=== PATIENT | male | born 1975 | race African-American/Black ===

== ENCOUNTER 2017-05-30 05:45 | Day surgery (SDC) | payer OTHER ==
[2017-05-30] VITALS (13 sets, daily range): BP systolic 116–191; BP diastolic 63–101
[~2017-05-30] VITALS: Ht 191.8 cm; Wt 89.8 kg
[2017-05-30] MEDS ORDERED: ceFAZolin 1gm/50ml Premix 50 ML IV ONE (06:00)
[2017-05-30] MEDS ORDERED: oxyCONTIN 20mg tab ORAL ONE (06:00)
[2017-05-30] MEDS ORDERED: Morphine Sulfate PF 10 ML ONE (06:22)
[2017-05-30] MEDS ORDERED: Kenalog-40 1ml Vial ONE (06:22)
[2017-05-30] MEDS ORDERED: LOTENSIN40 MG ORAL (06:22)
[2017-05-30] MEDS ORDERED: HYDRALAZINE HCL50 MG ORAL (06:22)
[2017-05-30] MEDS ORDERED: Bupivacaine w/Epi 0.5% 30ml Vial INJ ONE (06:23)
[2017-05-30] MEDS ORDERED: Bupivacaine 0.25% Inj 30ml INJ ONE (06:23)
[2017-05-30] MEDS ORDERED: Lidocaine 1% 10mg/ml/Epi 0.005mg/ml 30ml vial INJ ONE (06:23)
[2017-05-30] MEDS ORDERED: Ketorolac 30mg Inj ONE (06:23)
[2017-05-30] MEDS ORDERED: fentaNYL 100 mcg/2 mL IV ONE (07:00)
[2017-05-30] MEDS ORDERED: Duramorph PF 10mg/10ml amp EPIDUR ONE (07:00)
[2017-05-30] MEDS ORDERED: Midazolam 2mg/2ml Inj ONE (07:00)
[2017-05-30] MEDS ORDERED: NS Irrig 4000ml IRRIG ONE ×2 (07:00)
[2017-05-30] MEDS ORDERED: LR 1000ml ONE (07:00)
[2017-05-30] MEDS ORDERED: Sterile Water For Irrig 2000ml IRRIG ONE (07:00)
[2017-05-30] MEDS ORDERED: Propofol 200mg/20ml IV ONE (07:00)
--- NOTE | 2017-05-30 07:07 | Operative Note - PDOC ---
Operative Note Operative Note Pre-op Diagnosis: right knee pain Procedure: right knee arthroscopy, removal interacticular loose bodies, synovectomy, partial medial menisectomy Post-op Diagnosis: same as pre-op plus Operative Findings: consistent w/pre-op dx studies Anesthesia: MAC Specimen: none Complications: none Condition: stable Estimated Blood Loss: none Implant(s) used?: No NOHEMI RETANA May 30, 2017 07:07
--- NOTE | 2017-05-30 07:07 | Pre-Procedure Note/Attestation ---
Pre-Procedure Note/Attestation Complete Prior to Procedure Planned Procedure: right Procedure Narrative: knee arthroscopy diagnostic, possible menisectomy/synovectomy Indications for Procedure Pre-Operative Diagnosis: right knee pain Attestation I attest that I discussed the nature of the procedure; its benefits; risks and complications; and alternatives (and the risks and benefits of such alternatives ), prior to the procedure, with the patient (or the patient's legal patient registration representative). I attest that, if there was a reasonable possibility of needing a blood transfusion, the patient (or the patient's legal patient registration representative) was given the [facility] standardized written summary, pursuant to the Daniele Lilo Blood Safety Act ([place] Health and Safety Code # 1645, as amended). I attest that I re-evaluated the patient just prior to the surgery and that there has been no change in the patient's H&P, except as documented below: NOHEMI RETANA May 30, 2017 07:07
--- NOTE | 2017-05-30 07:42 | Anethesia Preoperative Eval ---
Anesthesia Pre-op PMH/ROS General Date of Evaluation: May 30, 2017 Time of Evaluation: 07:00 ASA Score: ASA 1 Mallampati Score Class I : Soft palate, uvula, fauces, pillars visible Class II: Soft palate, uvula, fauces visible Class III: Soft palate, base of uvula visible Class IV: Only hard plate visible Mallampati Classification: Class I Allergies: Coded Allergies: SULFA (SULFONAMIDE ANTIBIOTICS) (Verified Allergy, Unknown, 05/29/17) Anesthesia Pre-op Phys. Exam Physician Exam Last Vital Signs Date Time Temp Pulse Resp B/P (MAP) Pulse Ox O2 Delivery O2 Flow Rate FiO2 05/30/17 06:16 97.6 58 18 162/90 97 Room Air Airway Exam Mallampati Score: Class I Chris Lu MD May 30, 2017 07:42
[2017-05-30] MEDS ORDERED: Hydromorphone 0.5mg/0.5ml inj IVP PRN (07:45)
[2017-05-30] MEDS ORDERED: Ketorolac 30mg Inj IV PRN (07:45)
[2017-05-30] MEDS ORDERED: fentaNYL 100 mcg/2 mL IV PRN ×2 (07:45)
--- NOTE | 2017-05-30 07:55 | Immediate Post-Op Evaluation ---
Immediate Post-Op Evalulation Immediate Post-Op Evalulation Procedure: r knee arthroscopy Date of Evaluation: May 30, 2017 Time of Evaluation: 08:00 Nausea: No Vomiting: No Given Within 1 Hr of Incision: Yes Chris Lu MD May 30, 2017 07:55
--- NOTE | 2017-05-30 10:09 | 48 Hour Post Anesthesia Eval ---
Post Anesthesia Evaluation Procedure: r knee arthroscopy Date of Evaluation: May 30, 2017 Time of Evaluation: 10:09 Nausea: No Vomiting: No Follow-up care needed: ready to discharge Chris Lu MD May 30, 2017 10:09
[2017-05-30] MEDS ORDERED: Tylenol #3 tab (300mg/30mg) ORAL PRN (14:01)
[2017-05-30] MEDS ORDERED: D5 1/2NS 1,000 ML IV SCH (14:01)
[2017-05-30] MEDS ORDERED: HYDROmorphone 1mg/ml Carpuject SUBQ PRN (14:01)
[2017-05-30] MEDS ORDERED: Norco 5mg/325mg tab ORAL PRN (14:01)
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
== END 2017-05-30 10:15 | disposition home or self-care (01) ==
LOC: SUR 05:45
DX: M23.8X1 Other internal derangements of right knee (principal); M23.41 Loose body in knee, right knee; M22.41 Chondromalacia patellae, right knee; Z88.2 Allergy status to sulfonamides; I10 Essential (primary) hypertension; I42.9 Cardiomyopathy, unspecified; Z87.828 Personal history of other (healed) physical injury and trauma
CPT/HCPCS: 29876; J0690; J1885; J2250; J2274; J2704; J3010; J3301; J3490; J7120; 94003; 94150